=== PATIENT | female | born 1975 | race Caucasian/White ===

== ENCOUNTER 2024-01-27 07:12 | Inpatient (IN) ==
[2024-01-27] MEDS ORDERED: cefTRIAXone 1 gm/50 mL D5W 1 GM/50 ML BAG IV SCH (09:45)
[2024-01-27 09:59] LABS: Resp Rate 16
[2024-01-27 10:02] LABS: PCO2 Arterial 57 mmHg (35-45); PO2 Arterial 253 mmHg (80-100)
[2024-01-27] MEDS: Rocuronium 50 mg VIAL 10 mg/ml 5 ml VIAL (50 mg) IV ONE (10:33)
[2024-01-27] MEDS: cefTRIAXone 2 gm/50 mL D5W 2 GM/50 ML BAG IV SCH (11:19)
[2024-01-27] MEDS: Propofol 10 mg/ml 100 ML BTL 1,000 MG/100 ML BTL IV SCH (11:47)
[2024-01-27] MEDS: Propofol 10 mg/ml 100 ML BTL 1,000 MG/100 ML BTL ONE (11:49)
[2024-01-27] MEDS: Norepinephrine 4 MG/250mL D5W 4,000 MCG/250 ML BAG IV ONE (11:50)
[2024-01-27] MEDS: Norepinephrine 4 MG/250mL NS 4,000 MCG/250 ML BAG IV SCH (11:51)
[2024-01-27] MEDS: Famotidine IV 10 MG/ML 2 ml VIAL (20 mg) IV SLOW PU SCH (12:08)
[2024-01-27] MEDS: Chlorhexidine MOUTHWASH 0.12% 15 ML UDC TOPICAL SCH (12:08)
[2024-01-27] MEDS: methylPREDNISolone SOD SUCC 125 mg 2 ML VIAL IV SCH (12:08)
[2024-01-27] MEDS: Azithromycin 500 mg/250 ml NS 500 MG/250 ML BAG IVPB SCH (12:41)
[2024-01-27 13:23] LABS: PCO2 Arterial 53 mmHg (35-45); PO2 Arterial 82 mmHg (80-100)
[2024-01-27] MEDS: fentaNYL INFUSION 50 mcg/mL VL 2,500 MCG/50 ML VIAL IV SCH (13:26)
[2024-01-27 13:29] LABS: ABS Lymphocytes 0.4 10^3/uL (1.0-4.8); ABS Monocytes 0.4 10^3/uL (0.0-0.9); ABS Neutrophils 13.7 10^3/uL (1.5-7.6); Hematocrit 38.7 % (35-45); Hemoglobin 12.7 g/dL (11.5-14.3); Lymphocyte % 2.8 %; Mean Corpuscular Hemoglobin 31.2 pg (27-33); Mean Corpuscular Volume 94.5 fL (80-97); Mean Platelet Volume 7.4 fL (7.5-11.2); Platelet Count 280 10^3/uL (150-450); Red Blood Count 4.09 10^6/uL (3.63-4.92); Red Cell Distribution Width 13.4 % (12-17); White Blood Count 14.5 10^3/uL (3.8-11.8)
[2024-01-27 13:40] LABS: Urine Appearance Clear; Urine Bilirubin Negative (Negative); Urine Blood Negative (Negative); Urine Color Yellow; Urine Glucose Negative (Negative); Urine Ketones Negative (Negative); Urine Nitrite Negative (Negative); Urine Protein 1+ (>=30 mg/dL) (Negative); Urine Specific Gravity 1.023 (1.002-1.030); Urine Urobilinogen Negative (Negative); Urine pH 5.5 (5.0-8.0)
[2024-01-27 13:46] LABS: Urine Bacteria Absent /HPF (Absent); Urine Red Blood Cell Trace(0-2/hpf) /HPF (0-Trace); Urine White Blood Cell Trace(0-5/hpf) /HPF (0-Trace)
[2024-01-27] MEDS: Rocuronium 50 mg VIAL 10 mg/ml 5 ml VIAL (50 mg) ONE (13:59)
[2024-01-27] MEDS ORDERED: Albuterol/Ipratropium NEB.SOL (2.5/0.5 MG) 3 ML NEB.SOLN INH PRN (14:15)
[2024-01-27 14:38] LABS: Albumin 4.1 g/dL (3.2-5.2); Albumin/Globulin Ratio 1.8 (1-3); Calcium 8.3 mg/dL (8.6-10.3); Creatinine, Serum 0.77 mg/dL (0.51-0.95); Globulin 2.3 g/dL (2-4); Potassium 4.9 mmol/L (3.5-5.0); Total Bilirubin 0.3 mg/dL (0.2-1.0); Total Protein 6.4 g/dL (6.4-8.9); eGFR CKD-EPI 94.5 (>60)
[2024-01-27] MEDS: Albuterol/Ipratropium NEB.SOL (2.5/0.5 MG) 3 ML NEB.SOLN INH SCH (14:56)
[2024-01-27 18:41] LABS: Osmolality Serum 273 mOsm/kg (275-295)
[2024-01-27] MEDS: NS 0.9% 1000 ml BAG 1,000 ML IV SCH (20:05)
[2024-01-27 20:33] LABS: Urine Osmo 698 mOsm/kg (150-1150)
[2024-01-27] MEDS: Enoxaparin 40 MG/0.4 ML SYR SUBCUT SCH (20:37)
[2024-01-28 05:17] LABS: ABS Lymphocytes 0.8 10^3/uL (1.0-4.8); ABS Monocytes 0.3 10^3/uL (0.0-0.9); ABS Neutrophils 7.9 10^3/uL (1.5-7.6); Hematocrit 33.7 % (35-45); Hemoglobin 11.6 g/dL (11.5-14.3); Lymphocyte % 8.5 %; Mean Corpuscular Hemoglobin 32.4 pg (27-33); Mean Corpuscular Hgb Conc 34.4 g/dL (31-36); Mean Corpuscular Volume 94.2 fL (80-97); Mean Platelet Volume 7.2 fL (7.5-11.2); Platelet Count 241 10^3/uL (150-450); Red Blood Count 3.58 10^6/uL (3.63-4.92)
[2024-01-28 05:52] LABS: Calcium 8.5 mg/dL (8.6-10.3); Creatinine, Serum 0.55 mg/dL (0.51-0.95); Magnesium 2.2 mg/dL (1.9-2.7); Phosphorus 3.5 mg/dL (2.5-5.0); Potassium 4.9 mmol/L (3.5-5.0); eGFR CKD-EPI 112.3 (>60)
[2024-01-28 09:38] LABS: Resp Rate 25
[2024-01-28] MEDS: Midazolam 2 mg/2 ml VIAL 1 mg/ml 2 ml VIAL (2 mg) ONE ×2 (09:40→14:17)
[2024-01-28 09:44] LABS: PCO2 Arterial 50 mmHg (35-45); PO2 Arterial 78 mmHg (80-100)
[2024-01-28] MEDS ORDERED: Albuterol/Ipratropium NEB.SOL (2.5/0.5 MG) 3 ML NEB.SOLN INH SCH (10:00)
[2024-01-28] MEDS: Midazolam PREMIXBAG 1 MG/ML NS 100 ML IV SCH (10:12)
[2024-01-28] MEDS: Albuterol/Ipratropium NEB.SOL (2.5/0.5 MG) 3 ML NEB.SOLN INH SCH (11:37)
[2024-01-28] MEDS: Midazolam 2 mg/2 ml VIAL 1 mg/ml 2 ml VIAL (2 mg) IV SLOW PU ONE ×2 (12:02→14:17)
[2024-01-28] MEDS: NS 0.9% 1000 ml BAG 1,000 ML IV SCH (13:11)
[2024-01-28 15:23] LABS: Resp Rate 25
[2024-01-28 15:25] LABS: PCO2 Arterial 45 mmHg (35-45); PO2 Arterial 75 mmHg (80-100)
[2024-01-29] MEDS: fentaNYL 100 mcg/2 ml 50 MCG/ML VIAL IV SLOW PU ONE (00:31)
[2024-01-29] MEDS: Midazolam 2 mg/2 ml VIAL 1 mg/ml 2 ml VIAL (2 mg) IV SLOW PU ONE (00:35)
[2024-01-29] MEDS: Rocuronium 50 mg VIAL 10 mg/ml 5 ml VIAL (50 mg) IV ONE ×4 (00:45→14:25)
[2024-01-29] MEDS: Rocuronium 50 mg VIAL 10 mg/ml 5 ml VIAL (50 mg) ONE (01:11)
[2024-01-29] MEDS: Propofol 10 mg/ml 100 ML BTL 1,000 MG/100 ML BTL ONE (02:30)
[2024-01-29] MEDS: Propofol 10 mg/ml 100 ML BTL 1,000 MG/100 ML BTL IV SCH (02:34)
[2024-01-29] MEDS: Magnesium Sulfate 2 gm BAG 2 GM/50 ML BAG IVPB ONE (03:31)
[2024-01-29] MEDS: Dexmedetomidine 1,000 MCG in NS 0.9% 250 ml 240 ML IV SCH (03:55)
[2024-01-29 05:36] LABS: ABS Basophils 0.1 10^3/uL (0.0-0.1); ABS Lymphocytes 0.7 10^3/uL (1.0-4.8); ABS Monocytes 0.6 10^3/uL (0.0-0.9); ABS Neutrophils 16.3 10^3/uL (1.5-7.6); Hematocrit 35.3 % (35-45); Hemoglobin 11.9 g/dL (11.5-14.3); Mean Corpuscular Hemoglobin 31.8 pg (27-33); Mean Corpuscular Hgb Conc 33.5 g/dL (31-36); Mean Corpuscular Volume 94.7 fL (80-97); Mean Platelet Volume 7.4 fL (7.5-11.2); Platelet Count 260 10^3/uL (150-450); Red Blood Count 3.73 10^6/uL (3.63-4.92); Red Cell Distribution Width 13.5 % (12-17); White Blood Count 17.7 10^3/uL (3.8-11.8)
[2024-01-29 05:53] LABS: Calcium 8.6 mg/dL (8.6-10.3); Creatinine, Serum 0.64 mg/dL (0.51-0.95); Magnesium 2.9 mg/dL (1.9-2.7); Phosphorus 4.3 mg/dL (2.5-5.0); Potassium 5.8 mmol/L (3.5-5.0); eGFR CKD-EPI 108.3 (>60)
[2024-01-29 06:18] LABS: Resp Rate 25
[2024-01-29 06:20] LABS: PCO2 Arterial 66 mmHg (35-45); PO2 Arterial 160 mmHg (80-100)
[2024-01-29] MEDS: Dextrose 50% Syringe 50 ml 25 GM/50 ML SYRINGE IV PUSH ONE (06:37)
[2024-01-29] MEDS: CALCIUM GLUCONATE 1GM/50ML NS 1 GM/50 ML BAG IV ONE (07:24)
[2024-01-29] MEDS: Iohexol 350 (CONTRAST) 500 ML MDV IV ONE (08:17)
[2024-01-29 10:11] LABS: Creatinine, Serum 0.75 mg/dL (0.51-0.95); Potassium 5.7 mmol/L (3.5-5.0); eGFR CKD-EPI 97.5 (>60)
[2024-01-29] MEDS: SODIUM ZIRCONIUM CYCLOSILICATE 10 GM PACKET PO ONE (11:21)
[2024-01-29] MEDS: Cisatracurium 100 MG in NS 0.9% 250 ml 200 ML IV SCH ×4 (14:13→22:17)
[2024-01-29] MEDS: Albuterol/Ipratropium NEB.SOL (2.5/0.5 MG) 3 ML NEB.SOLN INH SCH ×2 (15:16→15:33)
[2024-01-29 15:33] LABS: Resp Rate 22
[2024-01-29 15:51] LABS: PCO2 Arterial 50 mmHg (35-45); PO2 Arterial 84 mmHg (80-100)
[2024-01-29] MEDS: fentaNYL INFUSION 50 mcg/mL VL 2,500 MCG/50 ML VIAL IV SCH (16:51)
[2024-01-29] MEDS: Pantoprazole VIAL 40 MG VIAL IV SCH (18:06)
[2024-01-29] MEDS ORDERED: HYDROmorphone 1 MG/1 ML SYRINGE IV SLOW PU PRN (21:13)
[2024-01-29] MEDS: HYDROmorphone 1 MG/1 ML SYRINGE ONE (22:04)
[2024-01-29] MEDS: HYDROmorphone 1 MG/1 ML SYRINGE IV SLOW PU PRN (22:39)
[2024-01-29] MEDS: Lactated Ringers 1000 ml BAG 1,000 ML IV SCH (23:00)
[2024-01-30 00:08] LABS: PCO2 Arterial 44 mmHg (35-45); PO2 Arterial 74 mmHg (80-100)
[2024-01-30 00:41] LABS: Hematocrit 37.6 % (35-45); Hemoglobin 12.5 g/dL (11.5-14.3); Mean Corpuscular Hemoglobin 31.3 pg (27-33); Mean Corpuscular Hgb Conc 33.1 g/dL (31-36); Mean Corpuscular Volume 94.5 fL (80-97); Mean Platelet Volume 7.5 fL (7.5-11.2); Platelet Count 265 10^3/uL (150-450); Red Blood Count 3.98 10^6/uL (3.63-4.92); Red Cell Distribution Width 13.1 % (12-17); White Blood Count 17.8 10^3/uL (3.8-11.8)
[2024-01-30 00:57] LABS: Albumin 3.6 g/dL (3.2-5.2); Albumin/Globulin Ratio 1.4 (1-3); Calcium 8.6 mg/dL (8.6-10.3); Creatinine, Serum 0.73 mg/dL (0.51-0.95); Globulin 2.5 g/dL (2-4); Potassium 5.1 mmol/L (3.5-5.0); Total Bilirubin 0.2 mg/dL (0.2-1.0); Total Protein 6.1 g/dL (6.4-8.9); eGFR CKD-EPI 100.8 (>60)
[2024-01-30 01:13] LABS: INR 0.95 (0.83-1.13)
[2024-01-30 01:37] LABS: ABS Basophils 0.1 10^3/uL (0.0-0.1); ABS Lymphocytes 0.8 10^3/uL (1.0-4.8); ABS Monocytes 0.6 10^3/uL (0.0-0.9); ABS Neutrophils 16.3 10^3/uL (1.5-7.6); ABS Nucleated RBC 0.01 10^3/ul; Lymphocyte % 4.3 %
[2024-01-30 01:38] LABS: Urine Appearance Extra Turbid; Urine Bacteria Absent /HPF (Absent); Urine Bilirubin Negative (Negative); Urine Blood 3+ (Negative); Urine Glucose Negative (Negative); Urine Ketones Negative (Negative); Urine Nitrite Negative (Negative); Urine Protein 1+ (>=30 mg/dL) (Negative); Urine Red Blood Cell 3+(>10/hpf) /HPF (0-Trace); Urine Specific Gravity 1.039 (1.002-1.030); Urine Urobilinogen Negative (Negative); Urine White Blood Cell 1+(6-10/hpf) /HPF (0-Trace)
[2024-01-30 01:48] LABS: Urine Color Light-Orange
[2024-01-30] MEDS: hydrALAZINE 20 mg/ml 1 ML Vial IV IV SLOW PU ONE (02:49)
[2024-01-30 05:07] LABS: Hematocrit 36.7 % (35-45); Hemoglobin 12.2 g/dL (11.5-14.3); Mean Corpuscular Hemoglobin 31.3 pg (27-33); Mean Corpuscular Hgb Conc 33.4 g/dL (31-36); Mean Corpuscular Volume 93.7 fL (80-97); Mean Platelet Volume 7.1 fL (7.5-11.2); Platelet Count 271 10^3/uL (150-450); Red Blood Count 3.91 10^6/uL (3.63-4.92); Red Cell Distribution Width 13.3 % (12-17); White Blood Count 19.3 10^3/uL (3.8-11.8)
[2024-01-30] MEDS: Polyethylene Glycol 3350 17 GM PACKET PO ONE (05:27)
[2024-01-30 05:42] LABS: Calcium 8.5 mg/dL (8.6-10.3); Creatinine, Serum 0.61 mg/dL (0.51-0.95); Phosphorus 3.2 mg/dL (2.5-5.0); Potassium 5.2 mmol/L (3.5-5.0); eGFR CKD-EPI 109.5 (>60)
[2024-01-30 06:07] LABS: ABS Lymphocytes 0.9 10^3/uL (1.0-4.8); ABS Monocytes 1.1 10^3/uL (0.0-0.9); ABS Neutrophils 17.2 10^3/uL (1.5-7.6); Eosinophil % 0.1 %; Lymphocyte % 4.4 %
[2024-01-30 06:57] VITALS: BP 143/80
[2024-01-30 09:04] LABS: PCO2 Arterial 62 mmHg (35-45); PO2 Arterial 82 mmHg (80-100)
[2024-01-30] MEDS ORDERED: Dextrose 50% Syringe 50 ml 25 GM/50 ML SYRINGE IV PUSH PRN (09:30)
[2024-01-30] MEDS: Ketamine HCL 50 mg/ml 10 ml VIAL (500 MG) IV ONE (10:30)
[2024-01-30] MEDS: Ketamine INFUS(restricted) NS 500 MG/500 ML BAG IV SCH (10:34)
[2024-01-30] MEDS: Polyethylene Glycol 3350 17 GM PACKET PO SCH (10:46)
[2024-01-30] MEDS: Albuterol/Ipratropium NEB.SOL (2.5/0.5 MG) 3 ML NEB.SOLN INH SCH (11:23)
[2024-01-30 13:28] LABS: PCO2 Arterial 64 mmHg (35-45); PO2 Arterial 79 mmHg (80-100)
[2024-01-30] MEDS: Albuterol 2.5mg/3 ml (0.083%) NEB.SOLN INH SCH (16:12)
[2024-01-30] MEDS: Albuterol/Ipratropium NEB.SOL (2.5/0.5 MG) 3 ML NEB.SOLN INH PRN (17:40)
[2024-01-30] MEDS: Cisatracurium 100 MG in NS 0.9% 250 ml 200 ML IV SCH (18:15)
[2024-01-30] MEDS: Rocuronium 50 mg VIAL 10 mg/ml 5 ml VIAL (50 mg) ONE (19:05)
[2024-01-30] MEDS ORDERED: Rocuronium 50 mg VIAL 10 mg/ml 5 ml VIAL (50 mg) IV ONE (19:46)
[2024-01-30] MEDS ORDERED: Rocuronium 50 mg VIAL 10 mg/ml 5 ml VIAL (50 mg) ONE (19:47)
[2024-01-30] MEDS: Rocuronium 50 mg VIAL 10 mg/ml 5 ml VIAL (50 mg) IV ONE (19:50)
[2024-01-30] MEDS ORDERED: Senna TAB 8.6 mg TAB PO SCH (21:00)
== END 2024-01-30 20:00 | disposition short-term general hospital (02) | DRG 133 ==
LOC: ICU 09:00
PROVIDERS: ADMIT Internal Medicine Pulmonary Disease; ATTEND Internal Medicine Pulmonary Disease